=== PATIENT | male | born 1955 | race Caucasian/White ===

== ENCOUNTER → 2021-06-26 09:28 | Outpatient (CLI) | payer OTHER, SELFPAY ==
[2021-06-26 11:43] LABS: COVID19 -Nasal RAPID Negative (Negative)
== END ==
PROVIDERS: PCP Physician Assistant; Visit Provider Family Medicine Sleep Medicine
DX: Z20.822 Contact with and (suspected) exposure to COVID-19 (principal)
CPT/HCPCS: 87635; C9803

== ENCOUNTER 2021-06-29 08:42 | Day surgery (SDC) | payer OTHER, SELFPAY ==
--- NOTE | 2021-06-29 | PATH_ITS ---
[facility] Accession Number: [id number] . 01 Material submitted: . PART A: colon - DESCENDING COLON POLYP PART B: colon - CECAL POLYPS 2 PART C: colon - SIGMOID POLYP . 02 Diagnosis: A. Descending Colon Polyp, Biopsy: Tubular adenoma. . B. Cecal Polyps, Polypectomies: Sessile serrated adenoma x2. Tubular adenoma x2. . C. Sigmoid Colon Polyp, Biopsy: Tubular adenoma. MRV 06/30/2021 1359 Local . 02 Electronically signed: . Gregory Segura MD, PhD, Pathologist NPI- [id number] . 01 Gross description: . Part A: DESCENDING COLON POLYP: Received in formalin is 1 fragment(s) of munguia, soft tissue measuring 0.4 x 0.3 x 0.2 cm submitted entirely in 1 cassette(s) Part B: CECAL POLYPS 2: Received in formalin are 4 fragment(s) of munguia, soft tissue measuring 0.1 x 0.1 x 0.1 cm to 0.6 x 0.5 x 0.5 cm submitted entirely in 1 cassette(s) Part C: SIGMOID POLYP: Received in formalin is 1 fragment(s) of munguia, soft tissue measuring 0.7 x 0.6 x 0.5 cm submitted entirely in 1 cassette(s) /TERI 06/30/2021 0153 Local . 02 Pathologist provided ICD-10: D12.4, D12.0, D12.5 . 02 CPT . 749470, 740911, 737498 Specimen Comment: A courtesy copy of this report has been sent to [phone] Performed at: 01 [facility] [address] [place] [address] [address], [place], [place] [id number] MD Julio Gay MD Phone: [phone] Performed at: 02 [facility] [address] [place] [id number] MD Beatriz Chopra MD Phone: [phone]
[2021-06-29] MEDS: SODIUM CHLORIDE 0.9% 1,000 ML 100 ML IV (09:16)
[2021-06-29 09:17] VITALS: BP 155/88; PULSE 78; RESP 16; TEMP 36.3; O2SAT 97; BMI 33.3
--- NOTE | 2021-06-29 09:18 | PM.HP.1 ---
History of Present Illness History of Present Illness Date Patient Seen: 06/29/21 Time Patient Seen: 09:18 Chief complaint: DX COLONOSCOPY Narrative: Positive fit. Positive family history colon cancer in his half sister Meds Home Medications and Allergies Home Medications Medication Instructions Recorded Confirmed Type amlodipine 10 mg tablet 10 mg PO DAILY 06/29/21 06/29/21 History hydrochlorothiazide 25 mg tablet 25 mg PO DAILY 06/29/21 06/29/21 History losartan 100 mg tablet 10 mg PO DAILY 06/29/21 06/29/21 History Allergies Allergy/AdvReac Type Severity Reaction Status Date / Time lisinopril AdvReac Intermediate Cough Verified 06/29/21 09:16 Review of Systems Review of Systems ROS: Yes All systems reviewed with the patient and are negative except as otherwise documented Exam Const General: cooperative and comfortable Orientation: alert HENMT Head: normocephalic Ears: external ears normal Nose: external nose normal Face and sinus: normal facial exam Mouth: oral mucosae normal Eyes General: appearance normal, both eyes and all related structures Neck Neck: normal visual inspection Chest Chest: normal inspection of the chest Resp Effort & Inspection: normal respiratory effort Cardio Rate: regular rate GI Inspection: normal to inspection Skin General: no rashes or lesions noted and No jaundice Neuro General: patient alert and moves all extremities Cognition: normal cognition Speech: speech normal Extrem General: no pedal edema Psych Appearance: grossly normal Assessment & Plan Assessment & Plan narrative: 65-year-old male the family history of colon cancer and a positive fit. Colonoscopy is pursued today. Time Spent With Patient Critical Care time: I spent a total of [] minutes of critical care time on this patient's care today; this time is exclusive of procedural time.
--- NOTE | 2021-06-29 09:20 | PM.PREOP ---
Pre-operative Note COVID-19 COVID-19 status: Negative Result date/Date tested (Pos, Neg/Pending): 06/26/21 Criteria for continued procedure: Possibility delay results in more complex future surgery or treatment Interval Note History & Physical reviewed/Exam performed by Physician: Yes Changes to H&P: No ASA Class (for procedural sedation): II
--- NOTE | 2021-06-29 10:03 | SUR.OPER ---
CECUM AT 0955
--- NOTE | 2021-06-29 10:15 | PM.OP.COLON ---
Operative Date/Time/Diagnoses Date of procedure: 06/29/21 Time of procedure: 10:15 Pre-op diagnosis: Positive FIT and a family history of colon cancer Post-op diagnosis: same Procedure & Clinicians Study performed: Colonoscopy with hot and cold snare polypectomies Same procedure as scheduled: Yes Indications: Positive FIT and a family history of colon cancer Surgeon: Wilder Jacobs Procedure Notes SCOAP/Timeout: Done Procedure in detail: After the risks and benefits were explained, written and verbal informed consent was obtained. The patient was brought into the procedure room and placed into the left lateral decubitus position. Please see nurse secondary education professor notes for sedation details. Digital rectal examination was accomplished. The scope was introduced into the patient and advanced under direct visualization to the cecum as identified by the appendiceal orifice and ileocecal valve. The scope was slowly withdrawn to carefully examine the mucosa for any defects or lesions. Comprehensive imaging was accomplished throughout the rectum including the dentate line. The colon was decompressed, the scope was then removed from the patient who tolerated the procedure well. Bowel prep adequate Adult colonoscope Scope withdrawal time: 18 minutes Sedation minutes: 28 Complications: none Impression: There was some diverticulosis in the sigmoid colon. Patient had grade 1 to grade 2 internal nonbleeding nonthrombosed hemorrhoids. In the descending colon there was an approximately 6-7 mm sessile polyp removed with hot snare. In the cecum there were 4 small polyps ranging in size from 2 mm to 6 mm in greatest dimension. Two of the smallest polyps were removed with cold snare and the 2 larger with hot snare. In the sigmoid around 30 cm from the anal verge there was a sessile irregular shaped polyp with greatest dimension being perhaps 13-14 mm. This was successfully removed with hot snare. Endoscopic diagnosis 1. Multiple colon polyps 2. Grade 2 hemorrhoids 3. Diverticulosis Post-procedure Plan for aftercare: 1. Await histopathology 2. Repeat colonoscopy 3 years. Disposition: PACU
[2021-06-29 10:19] VITALS: BP 117/79; PULSE 78; RESP 14; TEMP 36.6; O2SAT 95
[2021-06-29 10:24] VITALS: BP 129/87; PULSE 72; RESP 14; O2SAT 96
[2021-06-29 10:29] VITALS: BP 137/91; PULSE 63; RESP 14; O2SAT 99
[2021-06-29 10:35] VITALS: BP 137/84; PULSE 65; RESP 14; O2SAT 98
== END 2021-06-29 11:17 | disposition home or self-care (01) ==
PROVIDERS: PCP Physician Assistant; Referring Provider Internal Medicine Gastroenterology; Visit Provider Internal Medicine Gastroenterology
PROC: 0DJD8ZZ Inspection of Lower Intestinal Tract, Via Natural or Artificial Opening Endoscopic (ICD-10-PCS; CPT 45378; principal; 2021-06-29 10:00)
DX: R19.5 Other fecal abnormalities (principal); Z80.0 Family history of malignant neoplasm of digestive organs; K57.30 Diverticulosis of large intestine without perforation or abscess without bleeding; K64.1 Second degree hemorrhoids; D12.4 Benign neoplasm of descending colon; D12.0 Benign neoplasm of cecum; D12.5 Benign neoplasm of sigmoid colon
CPT/HCPCS: 45385; J2704

== ENCOUNTER → 2024-07-27 10:05 | Outpatient (CLI) | payer MEDICARE, SELFPAY ==
--- NOTE | 2024-07-27 10:09 | DI.RAD.S_ITS ---
PROCEDURE: XR HIP W PEL IF DONE RT 2V INDICATIONS: Pain in right hip TECHNIQUE: AP pelvis with lateral view(s) of the right hip(s). COMPARISON: None. FINDINGS: Bones: No fractures or dislocations. Pelvic ring appears intact. No suspicious bony lesions. Degenerative narrowing is present within the hip joints bilaterally. Osteophytic overgrowth is present at the superior aspect of the acetabulum bilaterally. Mild degenerative changes are present within the lower lumbar spine. Soft tissues: The visualized bowel gas pattern is normal. No suspicious soft tissue calcifications. IMPRESSION: Degenerative changes without visualized fracture. Dictated by: Sosa Gayle M.D. on 07/27/2024 at 12:48 Approved by: Sosa Gayle M.D. on 07/27/2024 at 12:49
== END ==
PROVIDERS: PCP Student in an Organized Health Care Education/Training Program; Referring Provider Student in an Organized Health Care Education/Training Program; Visit Provider Student in an Organized Health Care Education/Training Program
DX: M47.816 Spondylosis without myelopathy or radiculopathy, lumbar region (principal); M25.551 Pain in right hip
CPT/HCPCS: 73502

== ENCOUNTER 2024-08-01 16:02 | Observation (INO) | payer MEDICARE, SELFPAY ==
[2024-08-01] VITALS (13 sets, daily range): BP systolic 128–150; BP diastolic 70–90; PULSE 68–78; RESP 11–27; TEMP 36.6–37.1; O2SAT 96–100; BMI 33.2
--- NOTE | 2024-08-01 16:26 | EKG_ITS ---
[place] [id number] [address] Test Date: 2024-08-01 Pat Name: Gustavo Shaver Department: Room: Gender: Male Relief Operator: FERNANDO : 1955 Requested By: Order Number: [id number] Reading MD: Mayito Dowell MD Measurements Intervals [place] Rate: 73 P: 16 NM: 188 QRS: 5 QRSD: 108 T: 37 QT: 424 QTc: 467 Interpretive Statements Sinus rhythm with premature atrial complexes Electronically Signed On 08-02-2024 7:41:46 PDT by Mayito Dowell MD
--- NOTE | 2024-08-01 16:26 | DI.CT.S_ITS ---
PROCEDURE: CT HEAD/BRAIN WO CON INDICATIONS: falls R leg intermittently weak TECHNIQUE: Noncontrast 4.5 mm thick angled axial sections acquired from the foramen magnum to the vertex, with coronal and sagittal reformats. For radiation dose reduction, the following was used: automated exposure control, adjustment of mA and/or kV according to patient size. COMPARISON: None. FINDINGS: Image quality: Diagnostic. CSF spaces: Basal cisterns are patent. No extra-axial fluid collections. The ventricles are symmetric in size and shape. Brain: No intracranial bleeds or mass effect. There is cerebral volume loss, with resultant ventricular and sulcal prominence. There are periventricular and deep white matter chronic small vessel ischemic changes. There is intracranial internal carotid artery atherosclerosis. Skull and face: Calvarium and visualized facial bones appear intact, without suspicious lesions. Sinuses: Visualized sinuses and mastoids are clear. IMPRESSION: No acute intracranial pathology. Dictated by: Henrique De Jesus M.D. on 08/01/2024 at 18:12 Approved by: Henrique De Jesus M.D. on 08/01/2024 at 18:13
--- NOTE | 2024-08-01 16:26 | DI.RAD.S_ITS ---
PROCEDURE: XR HIP W PEL IF DONE RT 2V INDICATIONS: falls R leg intermittently weak TECHNIQUE: AP pelvis with lateral view(s) of the right hip(s). COMPARISON: [facility], , XR HIP W PEL IF DONE RT 2V, 07/27/2024, 9:18. FINDINGS: Bones: No fractures or dislocations. Pelvic ring appears intact. No suspicious bony lesions. Arthritic changes are present within the hips bilaterally. Soft tissues: The visualized bowel gas pattern is normal. No suspicious soft tissue calcifications. IMPRESSION: No visualized acute fracture or dislocation. However, if clinical concern and/or pain persist, short interval imaging followup in 7-10 days is recommended, as occult injury cannot be definitively excluded. Dictated by: Sosa Gayle M.D. on 08/01/2024 at 17:07 Approved by: Sosa Gayle M.D. on 08/01/2024 at 17:07
[2024-08-01 16:50] LABS: Add Manual Diff / Slide Review NO; Basophils Absolute Auto 100 /uL (0-100); Eosinophils Absolute Auto 300 /uL (0-450); Eosinophils Percent Auto 3.1 % (2-4); Hematocrit 42.1 % (41-53); Hemoglobin 14.9 g/dL (13.5-17.5); Lymphocytes Absolute Auto 2000 /uL (1100-4500); Lymphocytes Percent Auto 22.1 % (25-40); Mean Corpuscular HGB Conc 35.5 % (30-36); Mean Corpuscular Hemoglobin 30.8 PG (26-34); Mean Corpuscular Volume 86.9 fL (80-100); Monocytes Absolute Auto 900 /uL (0-900); Monocytes Percent Auto 10.1 % (3-14); Neutrophils Absolute Auto 5700 /uL (1500-7000); Neutrophils Percent Auto 63.7 % (50-75); Platelet Count 199 X10^3/uL (150-400); Red Blood Cell Count 4.85 X10^6/uL (4.5-5.9); Red Cell Distribution Width 14.1 % (11.6-14.8)
--- NOTE | 2024-08-01 16:50 | DI.RAD.S_ITS ---
PROCEDURE: XR KNEE RT 3V INDICATIONS: patient had a fall yesterday on crosswalk TECHNIQUE: 3 views of the knee were acquired. COMPARISON: None. FINDINGS: Bones: No fractures or dislocations. No suspicious bony lesions. Soft tissues: No joint effusion. No suspicious soft tissue calcifications. IMPRESSION: No visualized acute fracture or dislocation. However, if clinical concern and/or pain persist, short interval imaging followup in 7-10 days is recommended, as occult injury cannot be definitively excluded. Dictated by: Sosa Gayle M.D. on 08/01/2024 at 17:07 Approved by: Sosa Gayle M.D. on 08/01/2024 at 17:08
[2024-08-01 16:58] LABS: Alanine Aminotransferase 65 IU/L (<50); Albumin Globulin Ratio 1.5 (1.0-2.8); Alkaline Phosphatase 54 U/L (38-126); Aspartate Aminotransferase 36 IU/L (17-59); BUN Creatinine Ratio 21.7 (6-22); Blood Urea Nitrogen 28 mg/dL (9-20); Calcium 8.7 mg/dL (8.4-10.2); Carbon Dioxide 31 mmol/L (22-32); Chloride 98 mmol/L (98-107); Estimated Glomerular Filt Rate > 60 mL/min (>60); Globulin 2.6 g/dL (1.7-4.1); Glucose 156 mg/dL (70-99); HEMOLYSIS < 15 (0-50); Sodium 137 mmol/L (137-145); Total Protein 6.6 g/dL (6.3-8.2)
[2024-08-01 17:07] LABS: Potassium 2.7 mmol/L (3.4-5.1)
[2024-08-01] MEDS: POTASSIUM CHLORIDE 20 MEQ TAB 40 MEQ PO (18:01)
[2024-08-01] MEDS: BACITRACIN OINT 0.9 GM PCKT 2 APPLIC TOP (18:38)
--- NOTE | 2024-08-01 18:55 | ED_ITS ---
HPI - Neuro Symptoms/Deficit General Chief Complaint: Neuro Symptoms/Deficit Stated Complaint: sent by PCP, r/o TIA's Time Seen by Provider: 08/01/24 16:26 Source: patient Mode of arrival: Ambulatory History of Present Illness HPI Narrative: 68-year-old male with past medical history of hypertension presenting from primary care for generalized weakness, states that earlier this week he had a fall states that he felt like he could not move his leg at that time, states that he has been feeling overall weak, states that he did not hit his head at that time, he states that he called his primary care doctor and was instructed come into the ED to rule out any neurological deficits. At time of evaluation patient with NIH of 0 but does appear weak to his lower extremities, denies any headache visual disturbances chest pain shortness of breath fever chills nausea vomiting abdominal pain or any other GI/ symptoms. On Anticoagulants: No Related Data Home Medications Medication Instructions Recorded Confirmed amlodipine 10 mg tablet 10 mg PO DAILY 06/29/21 06/29/21 hydrochlorothiazide 25 mg tablet 25 mg PO DAILY 06/29/21 06/29/21 losartan 100 mg tablet 10 mg PO DAILY 06/29/21 06/29/21 Allergies Allergy/AdvReac Type Severity Reaction Status Date / Time lisinopril AdvReac Intermediate Cough Verified 06/29/21 09:16 Review of Systems Review of Systems Narrative: General: Denies fever, chills, weight loss HEENT: Denies headache, eye drainage, eye irritation, head trauma, sore throat, voice change Cardiovascular: Denies any chest pain, palpitations, tachycardia Respiratory: Denies any shortness of breath, cough, wheeze, stridor GI/: Denies any abdominal pain, nausea, vomiting, diarrhea, bright red blood per rectum, melanotic stools, urinary frequency, urinary retention, dysuria, hematuria MSK: Denies any joint pain, muscle pains, swelling Skin: Denies any rashes, lesions, discoloration Neuro: Right-sided leg weakness, Denies any headache, lightheadedness, dizziness, fainting, weakness Psych: Denies SI/HI Hematologic/Lymphatic On Anticoagulants: No Patient History Social History household members: spouse Smoking Status: Never smoker alcohol intake: current Smoking Status: Never smoker alcohol intake frequency: holidays/special occasions only Exam Narrative Exam Narrative: General: Cooperative, well-developed, not in acute distress HEENT: Normocephalic, atraumatic, PERRLA, normal sclera, eyelids normal Neck: Active full range of motion, atraumatic Chest: Normal to inspection, negative crepitus, no overlying erythema ecchymosis Respiratory: Normal respiratory effort, not in acute respiratory distress, clear to auscultation bilaterally negative cough, wheeze, tachypnea, rhonchi, rales Cardiology: Regular rate rhythm negative gallop, murmur, rubs GI/: No tenderness to palpation, soft, non rigid, normal to inspection, exam deferred MSK: Full active range of motion in all 4 extremities, atraumatic, no tenderness to palpation of any bony prominences Skin: No rashes or lesions noted Neuro: NIH of 0, Alert awake oriented x3, moves all 4 extremities spontaneously, cranial nerves intact, able to answer all questions appropriately follows commands appropriately Psych: Cooperative, negative suicidal or homicidal ideations Initial Vital Signs Initial Vital Signs: Vital Signs Pulse Rate 78 08/01/24 16:08 Pulse Oximetry 96 08/01/24 16:08 Course Orders Ordered: ED Orders 08/01/24 16:26 CT head/brain wo con Stat XR hip w pel RT 2V Stat EKG-12 Lead Stat 08/01/24 16:40 CBC Auto Diff [Complete Blood Count AUTO DIFF] Stat CMP [Comprehensive Metabolic Panel] Stat 08/01/24 16:50 XR knee RT 3V Stat Magnesium Sulfate (Magnesium Sulfate) 2 gm in 50 mls @ 25 mls/hr IV NOW ONE Stop: 08/01/24 20:55 Last Admin: 08/01/24 19:13 Dose: 25 mls/hr Documented By: RB Co-signed By: MIKE POTASSIUM CHLORIDE IN WATER (Potassium Cl 10 Meq/100 Ml Gloria) 10 meq in 100 mls @ 100 mls/hr IV Q1H ANURADHA Stop: 08/01/24 22:59 Last Admin: 08/01/24 19:51 Dose: 100 mls/hr Documented By: MIKE Sodium Chloride (Normal Saline 0.9%) 1,000 mls @ 150 mls/hr IV CONT ANURADHA Last Admin: 08/01/24 19:50 Dose: 150 mls/hr Documented By: MIKE Discontinued Medications Bacitracin (Bacitracin Oint 0.9 Gm Pckt) 2 applic TOP NOW ONE Stop: 08/01/24 18:31 Last Admin: 08/01/24 18:38 Dose: 2 applic Documented By: ROSS Sodium Chloride (Normal Saline 0.9%) 250 mls @ 150 mls/hr IV CONT ANURADHA Mupirocin (Mupirocin 22 Gm Oint) 2 applic TOP BID ANURADHA Potassium Chloride (Potassium Chloride 20 Meq Tab) 40 meq PO NOW ONE Stop: 08/01/24 17:52 Last Admin: 08/01/24 18:01 Dose: 40 meq Documented By: ROSS Vital Signs Vital signs: Vital Signs - 8 hr 08/01/24 16:08 08/01/24 16:09 08/01/24 16:09 Temperature Pulse Rate 78 76 Respiratory Rate 11 L Blood Pressure 150/81 H Pulse Oximetry 96 99 Oxygen Delivery Method 08/01/24 16:11 08/01/24 16:30 08/01/24 16:30 Temperature 98.7 F Pulse Rate 75 69 Respiratory Rate 14 16 Blood Pressure 150/81 H 134/74 Pulse Oximetry 99 98 Oxygen Delivery Method Room Air 08/01/24 17:02 08/01/24 17:30 08/01/24 18:00 Temperature Pulse Rate 73 78 71 Respiratory Rate 24 17 Blood Pressure Pulse Oximetry 99 99 98 Oxygen Delivery Method 08/01/24 18:30 08/01/24 18:30 08/01/24 19:00 Temperature Pulse Rate 68 Respiratory Rate 19 Blood Pressure 128/75 130/70 Pulse Oximetry 100 Oxygen Delivery Method 08/01/24 19:00 08/01/24 19:19 08/01/24 19:19 Temperature Pulse Rate 74 77 Respiratory Rate 27 H 19 Blood Pressure 143/82 H Pulse Oximetry 99 98 Oxygen Delivery Method MDM - Neuro Symptoms/Deficit Differential Diagnosis Differential diagnosis: Likely other (CVA, electrolyte abnormality,) Lab Data 08/01/24 16:40 08/01/24 16:40 Labs: Lab Results 08/01/24 Range/Units 16:40 WBC 9.0 (4.5-11.0) X10^3/uL RBC 4.85 (4.5-5.9) X10^6/uL Hgb 14.9 (13.5-17.5) g/dL Hct 42.1 (41-53) % MCV 86.9 (80-100) fL MCH 30.8 (26-34) PG MCHC 35.5 (30-36) % RDW 14.1 (11.6-14.8) % Plt Count 199 (150-400) X10^3/uL Neut % (Auto) 63.7 (50-75) % Lymph % (Auto) 22.1 L (25-40) % Weld % (Auto) 10.1 (3-14) % Eos % (Auto) 3.1 (2-4) % Baso % (Auto) 1.0 (0-2) % Neut # (Auto) 5700 (2108-3478) /uL Lymph # (Auto) 2000 (6856-1499) /uL Weld # (Auto) 900 (0-900) /uL Eos # (Auto) 300 (0-450) /uL Baso # (Auto) 100 (0-100) /uL Sodium 137 (137-145) mmol/L Potassium 2.7 L* (3.4-5.1) mmol/L Chloride 98 (98-107) mmol/L Carbon Dioxide 31 (22-32) mmol/L BUN 28 H (9-20) mg/dL Creatinine 1.29 H (0.66-1.25) mg/dL Estimated GFR > 60 (>60) mL/min BUN/Creatinine Ratio 21.7 (6-22) Glucose 156 H (70-99) mg/dL Calcium 8.7 (8.4-10.2) mg/dL Total Bilirubin 2.0 H (0.2-1.3) mg/dL AST 36 (17-59) IU/L ALT 65 H (<50) IU/L Alkaline Phosphatase 54 (38-126) U/L Total Protein 6.6 (6.3-8.2) g/dL Albumin 4.0 (3.5-5.0) g/dL Globulin 2.6 (1.7-4.1) g/dL Albumin/Globulin Ratio 1.5 (1.0-2.8) Imaging Data CT scan - head: Radiologist's Impression: [address] [address] [address] Scan Report Signed Patient: Gustavo Shaver MR#: [id number] : 1955 Acct:[id number] Age/Sex: 68 / M Date of Service: 08/01/24 Loc: ED Accession Number: [id number] Procedure: CT head/brain wo con Ordering Provider: Tsering Porras D.O. PROCEDURE: CT HEAD/BRAIN WO CON INDICATIONS: falls R leg intermittently weak TECHNIQUE: Noncontrast 4.5 mm thick angled axial sections acquired from the foramen magnum to the vertex, with coronal and sagittal reformats. For radiation dose reduction, the following was used: automated exposure control, adjustment of mA and/or kV according to patient size. COMPARISON: None. FINDINGS: Image quality: Diagnostic. CSF spaces: Basal cisterns are patent. No extra-axial fluid collections. The ventricles are symmetric in size and shape. Brain: No intracranial bleeds or mass effect. There is cerebral volume loss, with resultant ventricular and sulcal prominence. There are periventricular and deep white matter chronic small vessel ischemic changes. There is intracranial internal carotid artery atherosclerosis. Skull and face: Calvarium and visualized facial bones appear intact, without suspicious lesions. Sinuses: Visualized sinuses and mastoids are clear. IMPRESSION: No acute intracranial pathology. Extremity x-ray #1: Radiologist's Impression: [place] [address] XRay Report Signed Patient: Gustavo Shaver MR#: [id number] : 1955 Acct:[id number] Age/Sex: 68 / M Date of Service: 08/01/24 Loc: ED Accession Number: [id number] Procedure: XR hip w pel RT 2V Ordering Provider: Tsering Porras D.O. PROCEDURE: XR HIP W PEL IF DONE RT 2V INDICATIONS: falls R leg intermittently weak TECHNIQUE: AP pelvis with lateral view(s) of the right hip(s). COMPARISON: [facility], , XR HIP W PEL IF DONE RT 2V, 07/27/2024, 9:18. FINDINGS: Bones: No fractures or dislocations. Pelvic ring appears intact. No suspicious bony lesions. Arthritic changes are present within the hips bilaterally. Soft tissues: The visualized bowel gas pattern is normal. No suspicious soft tissue calcifications. IMPRESSION: No visualized acute fracture or dislocation. However, if clinical concern and/or pain persist, short interval imaging followup in 7-10 days is recommended, as occult injury cannot be definitively excluded. Extremity x-ray #2: Radiologist's Impression: [address] [address] XRay Report Signed Patient: Gustavo Shaver MR#: [id number] : 1955 Acct:[id number] Age/Sex: 68 / M Date of Service: 08/01/24 Loc: ED Accession Number: [id number] Procedure: XR knee RT 3V Ordering Provider: Tsering Porras D.O. PROCEDURE: XR KNEE RT 3V INDICATIONS: patient had a fall yesterday on crosswalk TECHNIQUE: 3 views of the knee were acquired. COMPARISON: None. FINDINGS: Bones: No fractures or dislocations. No suspicious bony lesions. Soft tissues: No joint effusion. No suspicious soft tissue calcifications. IMPRESSION: No visualized acute fracture or dislocation. However, if clinical concern and/or pain persist, short interval imaging followup in 7-10 days is recommended, as occult injury cannot be definitively excluded. ECG Data Interpretation: EKG interpreted by ED physician sinus 73 beats per minute QTC [address] changes no visible U-waves no STEMI MDM Narrative Medical decision making narrative: 68-year-old male with a past medical history of hypertension presenting for right-sided leg weakness states that about a week ago he was bending over in his garden tried to get up and was not able to get the strength to get up, he states that he started feeling fine but yesterday was at a [employer] game and states that his right leg just ?gave out he states that he called his primary care doctor and was told to come into the ED to rule out stroke, at time evaluation NIH of 0, he states that he has been suffering from right hip pain for several weeks, he denies any other symptoms at this time, lab work was consistent with a hypokalemia of 2.7, EKG without any arrhythmias, given severe electrolyte abnormality most likely secondary to hydrochlorothiazide use patient will require admission for electrolyte replacement. Patient was given p.o. and IV potassium as well as magnesium. The patient's management plan was discussed Dr. Prather, who agrees to admit the patient to their service and assumes care of this patient at this time. Full admission orders will be placed by the primary team. Critical Care Time Critical Care Time Critical Care Time: Yes Total Critical Care Time: 30 Attestation: Authorized and Performed by: Storm Rivas DO Total critical care time: Approximately [30] minutes Due to a high probability of clinically significant, life threatening deterioration, the patient required my highest level of preparedness to intervene emergently and I personally spent this critical care time directly and personally managing the patient. This critical care time included obtaining a history; examining the patient; pulse oximetry; ordering and review of studies; arranging urgent treatment with development of a management plan; evaluation of patient's response to treatment; frequent reassessment; and, discussions with other providers. This critical care time was performed to assess and manage the high probability of imminent, life-threatening deterioration that could result in multi-organ failure. It was exclusive of separately billable procedures and treating other patients and teaching time. Please see MDM section and the rest of the note for further information on patient assessment and treatment. Discharge Plan Departure Patient Disposition: Admitted as Observation Clinical Impression: Acute hypokalemia
--- NOTE | 2024-08-01 18:56 | PC.NURSE ---
This RN cut off wound bandage from patient right knee from last nights fall. I washed the patient wound area with normal saline patting with gauze. This RN measured and placed assessments of all three wounds in and around the knee. This RN covered the wounds with Bactrian and covered with adherent foam dressing.
[2024-08-01] MEDS: MAGNESIUM SULFATE 2 GM/50 ML PIGGYBACK IV (19:13)
[2024-08-01] MEDS: SODIUM CHLORIDE 0.9% 1,000 ML 150 ML IV (19:50)
[2024-08-01] MEDS: POTASSIUM CHLORIDE IN WATER 10 MEQ/100 ML PIGGYBACK 100 MEQ IV ×4 (19:51→23:06)
[2024-08-01] MEDS: ACETAMINOPHEN 325 MG TABLET 650 MG PO (22:38)
[2024-08-01] MEDS: SODIUM CHLORIDE 0.9% 1,000 ML 75 ML IV (22:39)
[2024-08-02] VITALS: BP 138/89; PULSE 71; RESP 18; TEMP 36.7; O2SAT 98
[2024-08-02] MEDS: OXYCODONE/ACETAMINOPHEN 5/325 TABLET 2 TAB PO ×2 (00:26→06:07)
--- NOTE | 2024-08-02 00:26 | PM.HP.1 ---
History of Present Illness History of Present Illness Chief complaint: sent by PCP, r/o TIA's Narrative: 68-year-old male with past medical history of hypertension presents with generalized weakness. Per the patient's report, or about a week ago, the patient had a fall and fell that he could not move at that time due to generalized weakness. The patient denies any head injury and did not come in immediately for evaluation. The patient however called his PCP today and informed the patient's physician about this incident. The patient was instructed to come into our ER for further evaluation. Otherwise the patient denies any recent fever, chills, nausea, vomiting, diarrhea, chest pain, focal weakness, slurred speech, facial drooping syncope. In the emergency room, the patient was hemodynamically stable. X-ray of left knee and left hip shows no acute finding. CT of the brain also shows no acute finding. The patient was nonfocal and NIH of 0 per our ER physician. Lab however shows potassium 2.7 but no other signs of infection or sepsis. The patient was given IV fluid and replacement potassium. Our ER physician requested emergent evaluation for replacement potassium with PT OT and observed overnight. PFSH Social History household members: spouse Smoking Status: Never smoker alcohol intake: current Meds Home Medications and Allergies Home Medications Medication Instructions Recorded Confirmed Type amlodipine 10 mg tablet 10 mg PO DAILY 06/29/21 08/01/24 History hydrochlorothiazide 25 mg tablet 25 mg PO DAILY 06/29/21 08/01/24 History losartan 100 mg tablet 10 mg PO DAILY 06/29/21 08/01/24 History oxycodone-acetaminophen 5 mg-325 1 tab PO Q6H PRN Pain (Scale Score 08/01/24 08/01/24 History mg tablet 4-6) Allergies Allergy/AdvReac Type Severity Reaction Status Date / Time lisinopril AdvReac Intermediate Cough Verified 06/29/21 09:16 Review of Systems Review of Systems ROS: Yes All systems reviewed with the patient and are negative except as otherwise documented Exam Vital Signs (past 8 hours): - 08/01/24 16:30 08/01/24 16:30 08/01/24 17:02 Temperature Pulse Rate 69 73 Respiratory Rate 16 Blood Pressure 134/74 Pulse Oximetry 98 99 Oxygen Flow Rate 08/01/24 17:30 08/01/24 18:00 08/01/24 18:30 Temperature Pulse Rate 78 71 Respiratory Rate 24 17 Blood Pressure 128/75 Pulse Oximetry 99 98 Oxygen Flow Rate 08/01/24 18:30 08/01/24 19:00 08/01/24 19:00 Temperature Pulse Rate 68 74 Respiratory Rate 19 27 H Blood Pressure 130/70 Pulse Oximetry 100 99 Oxygen Flow Rate 08/01/24 19:19 08/01/24 19:19 08/01/24 19:30 Temperature Pulse Rate 77 Respiratory Rate 19 Blood Pressure 143/82 H 140/75 Pulse Oximetry 98 Oxygen Flow Rate 08/01/24 19:30 08/01/24 20:00 08/01/24 20:00 Temperature Pulse Rate 77 72 Respiratory Rate 20 15 Blood Pressure 129/78 Pulse Oximetry 98 97 Oxygen Flow Rate 08/01/24 20:45 08/02/24 00:00 Temperature 97.8 F 98.1 F Pulse Rate 71 71 Respiratory Rate 18 18 Blood Pressure 150/90 H 138/89 Pulse Oximetry 100 98 Oxygen Flow Rate 0 0 Oxygen Delivery Method Room Air Oxygen Flow Rate 0 Narrative Exam Narrative: Physical Exam: GENERAL: The patient is not in any acute distressed. Awake and alert. HEENT: Nonicteric sclerae, PERRLA, EOMI. Oropharynx clear. Moist mucous membranes. Conjunctivae appear well perfused. HEART: Regular rate and rhythm without murmurs. No lower extremities edema. LUNGS: Clear to auscultation bilaterally. No wheezing, crackles or rhonchi ABDOMEN: Soft, positive bowel sounds, nontender. SKIN: No rash, no excessive bruising, petechiae, or purpura. NEUROLOGIC: AxO x 3. Cranial nerves II-XII intact without motor/sensory deficit. Objective Labs 08/01/24 16:40 08/01/24 16:40 Labs: Laboratory Results - last 24 hr 08/01/24 16:40 WBC 9.0 RBC 4.85 Hgb 14.9 Hct 42.1 MCV 86.9 MCH 30.8 MCHC 35.5 RDW 14.1 Plt Count 199 Neut % (Auto) 63.7 Lymph % (Auto) 22.1 L [place] % (Auto) 10.1 Eos % (Auto) 3.1 Baso % (Auto) 1.0 Neut # (Auto) 5700 Lymph # (Auto) 2000 [place] # (Auto) 900 Eos # (Auto) 300 Baso # (Auto) 100 Sodium 137 Potassium 2.7 L* Chloride 98 Carbon Dioxide 31 BUN 28 H Creatinine 1.29 H Estimated GFR > 60 BUN/Creatinine Ratio 21.7 Glucose 156 H Calcium 8.7 Total Bilirubin 2.0 H AST 36 ALT 65 H Alkaline Phosphatase 54 Total Protein 6.6 Albumin 4.0 Globulin 2.6 Albumin/Globulin Ratio 1.5 Assessment & Plan Assessment & Plan narrative: Recent fall with complaint of generalized weakness. Admit patient to medical telemetry under observation. Again patient is nonfocal exam CT head is negative. Patient does have generalized weakness that could be related to hypokalemia. Correct underlying electrolites imbalance and order for PT OT in morning. IV fluid hydration. Note left knee and left hip x-rays are negative for any acute finding. Pain control. Hypokalemia Patient denies any history of alcohol abuse. Potassium 2.7. Replace and monitor. Dehydration. IV fluid. Hypertension monitor blood pressure and resume home medication accordingly. DVT prophylaxis SCDs due to observational status CODE STATUS full code. Disposition likely home in 1 to 2 days - As the provider of this telehealth evaluation, requested by the patient's evaluating physician, I attest that I introduced myself to the patient, provided my credentials and determined that telemedicine via a real-time, 2 way interactive audio and video platform is an appropriate and effective means of providing this service. - I reviewed the patient's chart and had a discussion with the member of the patient's treatment team. - The patient and I mutually agreed with continuation of this evaluation via telemedicine. The patient consented for the telemedicine evaluation. - This virtual encounter was taken place from [place] by Dr. Rock Prather. The patient was evaluated at [facility]. The encounter was approximately 35 minutes. The nurse was present during the entire time of the encounter and was able to move the stethoscope in appropriate directions. Time-Based Coding :: [TOTAL MINUTES] spent with patient and on the chart (including review of chart, obtaining history, exam, reviewing outside data, placing orders, documenting exam and treatment plan, and counseling patient) on [DATE].
--- NOTE | 2024-08-02 00:51 | PC.WOUNDPHOT ---
Open area/abrasion/bruise from a fall to the R knee.
--- NOTE | 2024-08-02 02:06 | PC.NURSE ---
Addendum entered by Marleni Howard R.N. 08/02/24 03:17: the pts k+ is now 3.0 Rn notified provider and is waiting for new orders Original Note: pt recieved 4th bag of k+ around midnight and shortly after the provider ordered x6 more bags, md ophthalmologist asked to wait and have labs drwn prior to proceding, lab was called and will draw soon
[2024-08-02 03:04] LABS: BUN Creatinine Ratio 21.4 (6-22); Blood Urea Nitrogen 22 mg/dL (9-20); Calcium 8.4 mg/dL (8.4-10.2); Carbon Dioxide 25 mmol/L (22-32); Chloride 102 mmol/L (98-107); Estimated Glomerular Filt Rate > 60 mL/min (>60); Glucose 148 mg/dL (70-99); HEMOLYSIS < 15 (0-50); Magnesium 2.6 mg/dL (1.6-2.3); Sodium 134 mmol/L (137-145)
[2024-08-02] MEDS: POTASSIUM CHLORIDE IN WATER 10 MEQ/100 ML PIGGYBACK 100 MEQ IV ×5 (03:39→09:23)
[2024-08-02 04:00] VITALS: BP 127/82; PULSE 61; RESP 18; TEMP 36.4; O2SAT 99
[2024-08-02] MEDS: SODIUM CHLORIDE 0.9% 1,000 ML 75 ML IV (07:56)
[2024-08-02] MEDS: AMLODIPINE 5 MG TABLET 10 MG PO (09:20)
[2024-08-02] MEDS: LOSARTAN 50 MG TABLET 10 MG PO (09:20)
[2024-08-02] MEDS: OXYCODONE IR 10 MG TABLET PO (09:23)
[2024-08-02] MEDS: LACTULOSE 20 GM/30 ML SOLUTION PO ×2 (09:23→14:04)
[2024-08-02] MEDS: LIDOCAINE 5% PATCH 1 EACH TOP (09:30)
[2024-08-02 09:49] VITALS: BP 131/81; PULSE 75; RESP 16; TEMP 36.5; O2SAT 98
[2024-08-02 11:17] LABS: Add Manual Diff / Slide Review NO; Basophils Absolute Auto 100 /uL (0-100); Basophils Percent Auto 1.1 % (0-2); Eosinophils Absolute Auto 300 /uL (0-450); Eosinophils Percent Auto 3.4 % (2-4); Hemoglobin 14.3 g/dL (13.5-17.5); Lymphocytes Absolute Auto 2300 /uL (1100-4500); Lymphocytes Percent Auto 30.2 % (25-40); Mean Corpuscular HGB Conc 35.8 % (30-36); Mean Corpuscular Volume 86.6 fL (80-100); Monocytes Absolute Auto 700 /uL (0-900); Monocytes Percent Auto 8.7 % (3-14); Neutrophils Absolute Auto 4400 /uL (1500-7000); Neutrophils Percent Auto 56.6 % (50-75); Platelet Count 209 X10^3/uL (150-400); Red Blood Cell Count 4.61 X10^6/uL (4.5-5.9); Red Cell Distribution Width 14.4 % (11.6-14.8); White Blood Cell Count 7.7 X10^3/uL (4.5-11.0)
[2024-08-02 11:30] LABS: BUN Creatinine Ratio 22.8 (6-22); Blood Urea Nitrogen 23 mg/dL (9-20); Calcium 8.3 mg/dL (8.4-10.2); Carbon Dioxide 23 mmol/L (22-32); Chloride 102 mmol/L (98-107); Estimated Glomerular Filt Rate > 60 mL/min (>60); Glucose 183 mg/dL (70-99); HEMOLYSIS 24 (0-50); Potassium 3.3 mmol/L (3.4-5.1); Sodium 134 mmol/L (137-145)
[2024-08-02] MEDS: ACETAMINOPHEN 325 MG TABLET 650 MG PO ×3 (11:58→23:09)
[2024-08-02] MEDS: POTASSIUM CHLORIDE 20 MEQ TAB 40 MEQ PO ×2 (12:43→17:24)
[2024-08-02 13:00] VITALS: BP 135/77; PULSE 78; RESP 15; TEMP 37.1; O2SAT 98
--- NOTE | 2024-08-02 13:32 | DI.MRI.S_ITS ---
PROCEDURE: MR LUMBAR SPINE WO CON INDICATIONS: radiculopathy TECHNIQUE: Noncontrast sagittal T1 spin echo and T2 fast echo, sagittal STIR, and T2 fast spin echo through the lumbar spine. In cases with scoliosis, additional coronal T2 fast spin echo may be performed. COMPARISON: [facility], CT, CT HEAD/BRAIN WO CON, 08/01/2024, 17:03. FINDINGS: Image quality: Excellent. Alignment and Curvature: There minimal levoconvex lumbar scoliotic curvature. There is minimal retrolisthesis seen at L5-S1. Bone Marrow: Marrow is of normal overall signal. No acute vertebral body compression fractures. Spinal Cord: Conus medullaris terminates at the L1 level. Visualized cord demonstrates normal signal and size. Paraspinous Soft Tissues: No paravertebral masses. T12-L1: Normal appearance. L1-L2: No significant abnormality is seen. L2-L3: Mild loss of disc height is seen. Loss of disc signal is seen. Moderate generalized disc bulge is seen. There is a superimposed central disc protrusion. Mild to moderate facet hypertrophy is seen. There is at least moderate bilateral neural foraminal narrowing seen. There is a degree of compression seen upon the exiting nerve roots. Moderate central canal narrowing is seen. L3-L4: The disc height is well-preserved. Loss of disc signal is seen at this level. Moderate generalized disc bulge is seen. There is a superimposed central disc protrusion. At least moderate facet hypertrophy is seen. There is moderate right-sided and at least moderate left-sided neural foraminal narrowing. There is a degree of compression seen upon the exiting left L3 nerve root. Moderate to severe central canal narrowing is seen, as on series 7, image 11. L4-L5: The disc height is well-preserved. Loss of disc signal is seen at this level. Moderate generalized disc bulge is seen. There is a central/right disc extrusion, with superior migration of the disc material. There is an associated focal annular fissure seen posteriorly. Moderate facet joint hypertrophy is seen. At least moderate left-sided and moderate to severe right-sided neural foraminal narrowing. There is a degree of compression seen upon the exiting nerve roots. Moderate to severe central canal narrowing is seen at this level, as on series 7, image 14. L5-S1: Mild loss of disc height is seen. Loss of disc signal is seen. Moderate disc bulge is seen, which is eccentric to the left. There is moderate right-sided and at least moderate left-sided neural foraminal narrowing. Mild central canal narrowing is seen. IMPRESSION: At the L4-L5 level, there is a central/right disc extrusion seen. Multiple levels of significant degenerative change can be seen elsewhere. Dictated by: Byron Tobar M.D. on 08/03/2024 at 14:48 Approved by: Byron Tobar M.D. on 08/03/2024 at 14:52
--- NOTE | 2024-08-02 13:36 | PM.PN.1 ---
Subjective Subjective Date Patient Seen: 08/02/24 Interval history: Chief complaint: Right-sided hip pain and right leg weakness History of present illness: 68-year-old male 2 weeks ago was weeding in his guarding bending over could not stand up due to weakness in his right leg grab the post individually pull himself up was able to walk it but continued to have pain in his right hip when disease PCP ordered a plain x-ray film which demonstrated arthritic changes but nothing further Patient was walking in a crosswalk day ago and fell and could not stand up because of weakness in his right leg again. Patient has been sleeping in a chair due to right hip pain for the past 2 weeks. Emergency department patient was also found to be dehydrated and hypokalemic patient was admitted patient had been taking hydrochlorothiazide amlodipine and losartan Hospital course: Patient is feeling not as weak today his hydrochlorothiazide has been held his potassium has improved to 3.3. He still has significant pain with sitting on his right hip. Demonstrated a positive leg raise today and increased pain in his hip with lumbar extension MRI was ordered and patient is started on IV Solu-Medrol Review of systems: No lightheaded or dizziness no fever or chills No palpitations or shortness a breath No cough No nausea vomiting diarrhea No urinary symptoms Physical exam: Elderly male moderately obese alert cogent no acute distress HEENT unremarkable No labored respirations Patient has an antalgic gait Positive leg raise with a reproduction of the pain at the hip Reproduction of pain and worsening of pain with extension of the lumbar spine Assessment and plan: Hip pain and right leg weakness focal suggestive of either radiculopathy or sciatica -MRI of the lumbar spine -Solu-Medrol 60 IV Q 8 hours -PT evaluation Dehydration and hypokalemia likely iatrogenic with hydrochlorothiazide we will discontinue this and continue repletion Patient at low risk for DVT no prophylaxis indicated Full code blue Exam Vital Signs (past 8 hours): - 08/02/24 09:49 Temperature 97.7 F Pulse Rate 75 Respiratory Rate 16 Blood Pressure 131/81 Pulse Oximetry 98 Oxygen Flow Rate 0 Oxygen Delivery Method Room Air Oxygen Flow Rate 0 Objective Labs 08/02/24 11:03 08/02/24 11:03 Labs: Laboratory Results - last 24 hr 08/01/24 08/02/24 08/02/24 16:40 02:40 11:03 WBC 9.0 7.7 RBC 4.85 4.61 Hgb 14.9 14.3 Hct 42.1 40.0 L MCV 86.9 86.6 MCH 30.8 31.0 MCHC 35.5 35.8 RDW 14.1 14.4 Plt Count 199 209 Neut % (Auto) 63.7 56.6 Lymph % (Auto) 22.1 L 30.2 [place] % (Auto) 10.1 8.7 Eos % (Auto) 3.1 3.4 Baso % (Auto) 1.0 1.1 Neut # (Auto) 5700 4400 Lymph # (Auto) 2000 2300 [place] # (Auto) 900 700 Eos # (Auto) 300 300 Baso # (Auto) 100 100 Sodium 137 134 L 134 L Potassium 2.7 L* 3.0 L 3.3 L Chloride 98 102 102 Carbon Dioxide 31 25 23 BUN 28 H 22 H 23 H Creatinine 1.29 H 1.03 1.01 Estimated GFR > 60 > 60 > 60 BUN/Creatinine Ratio 21.7 21.4 22.8 H Glucose 156 H 148 H 183 H Calcium 8.7 8.4 8.3 L Magnesium 2.6 H Total Bilirubin 2.0 H AST 36 ALT 65 H Alkaline Phosphatase 54 Total Protein 6.6 Albumin 4.0 Globulin 2.6 Albumin/Globulin Ratio 1.5 PFSH Social History household members: spouse Smoking Status: Never smoker alcohol intake: current Assessment & Plan Time-Based Coding :: 35 minutes spent with patient and on the chart (including review of chart, obtaining history, exam, reviewing outside data, placing orders, documenting exam and treatment plan, and counseling patient)
[2024-08-02] MEDS: methylPREDNISolone 125 MG/2 ML VIAL 60 MG IV ×2 (13:54→23:00)
--- NOTE | 2024-08-02 14:30 | CM.DANOTE ---
Initial DCP Assessment Visit Note Reviewed EMR and team rounds for pt's status and updates. Met with pt at bedside to introduce self and role, pt was found to be alert/oriented, and resting quietly. Pt lives independently at baseline with his spouse in their own home here in [place]. His spouse will also transport him home once he's medically cleared for d/c, likely Tuesday, 08/02. He declines any CM d/c assistance or resource needs at this time. Payor: FUNMI TOVAR Adv PCP: Joe Palomo Pt is a 68 year-old M who was sent by his PCP yesterday evening for concerns of generalized weakness, and a recent fall due to R-leg weakness. In the ED, labs showed that he was hypokalemic. Plan was made to admit to [facility] for IV potassium and magnesium replacement. DCP will continue to monitor and assist with any further evolving needs prior to home d/c. Discharge Planning/Care Management CM Discharge Assessment Start: 08/01/24 20:32 Freq: Status: Active Protocol: Document 08/02/24 14:27 DPL (Rec: 08/02/24 14:30 DPL [id number]) Discharge Planning Assessment Assigned [employer] Helper RIVAS Ochoa Advance Directives? No History Provided By Patient,Medical Record Expected Length of Stay 2 Has Patient been admitted in last 30 No days? Prior Living Arrangements House Household Members spouse Type of transporation used prior to Drives own vehicle admit Independent with ADL's Yes: modified independent Is patient alert and oriented? Yes Caregiver for Another No Comment No anticipated home d/c needs identified at this time. Barriers to Discharge No Discharge Plan Home Referrals Initiated None needed Whiteboard Updated in Patient Room with Yes name and ext. # of [employer] Operator Helper Review Status In Process Please Provide Date Initial DC 08/02/24 Assessment Was Performed
[2024-08-02 20:00] VITALS: BP 136/88; PULSE 74; RESP 19; TEMP 37.1; O2SAT 96
[2024-08-02] MEDS: MELATONIN 3 MG TABLET 9 MG PO (23:31)
[2024-08-03 04:00] VITALS: BP 130/74; PULSE 79; RESP 19; TEMP 36.6; O2SAT 95
[2024-08-03] MEDS: methylPREDNISolone 125 MG/2 ML VIAL 60 MG IV ×2 (05:27→13:37)
[2024-08-03] MEDS: ACETAMINOPHEN 325 MG TABLET 650 MG PO ×2 (05:28→11:18)
[2024-08-03 06:04] LABS: BUN Creatinine Ratio 24.4 (6-22); Blood Urea Nitrogen 22 mg/dL (9-20); Calcium 8.6 mg/dL (8.4-10.2); Carbon Dioxide 21 mmol/L (22-32); Chloride 105 mmol/L (98-107); Estimated Glomerular Filt Rate > 60 mL/min (>60); Glucose 155 mg/dL (70-99); HEMOLYSIS < 15 (0-50); Potassium 4.1 mmol/L (3.4-5.1); Sodium 133 mmol/L (137-145)
--- NOTE | 2024-08-03 07:24 | PM.DS.1 ---
History of Present Illness History of Present Illness Date Patient Seen: 08/03/24 Chief complaint: sent by PCP, r/o TIA's Narrative: Chief complaint: Right-sided hip pain and right leg weakness History of present illness: 68-year-old male 2 weeks ago was weeding in his guarding bending over could not stand up due to weakness in his right leg grab the post individually pull himself up was able to walk it but continued to have pain in his right hip when disease PCP ordered a plain x-ray film which demonstrated arthritic changes but nothing further Patient was walking in a crosswalk day ago and fell and could not stand up because of weakness in his right leg again. Patient has been sleeping in a chair due to right hip pain for the past 2 weeks. Emergency department patient was also found to be dehydrated and hypokalemic patient was admitted patient had been taking hydrochlorothiazide amlodipine and losartan Hospital course: Patient is feeling not as weak today his hydrochlorothiazide has been held his potassium has improved to 3.3. He still has significant pain with sitting on his right hip. Demonstrated a positive leg raise today and increased pain in his hip with lumbar extension MRI was ordered and patient is started on IV Solu-Medrol 08/03: No further vein in the right hip or leg weakness and is ambulating normally MRIs shows annular tear and disc extrusion superiorly L4-L5 along with other findings T12-L1: Normal appearance. L1-L2: No significant abnormality is seen. L2-L3: Mild loss of disc height is seen. Loss of disc signal is seen. Moderate generalized disc bulge is seen. There is a superimposed central disc protrusion. Mild to moderate facet hypertrophy is seen. There is at least moderate bilateral neural foraminal narrowing seen. There is a degree of compression seen upon the exiting nerve roots. Moderate central canal narrowing is seen. L3-L4: The disc height is well-preserved. Loss of disc signal is seen at this level. Moderate generalized disc bulge is seen. There is a superimposed central disc protrusion. At least moderate facet hypertrophy is seen. There is moderate right-sided and at least moderate left-sided neural foraminal narrowing. There is a degree of compression seen upon the exiting left L3 nerve root. Moderate to severe central canal narrowing is seen, as on series 7, image 11. L4-L5: The disc height is well-preserved. Loss of disc signal is seen at this level. Moderate generalized disc bulge is seen. There is a central/right disc extrusion, with superior migration of the disc material. There is an associated focal annular fissure seen posteriorly. Moderate facet joint hypertrophy is seen. At least moderate left-sided and moderate to severe right-sided neural foraminal narrowing. There is a degree of compression seen upon the exiting nerve roots. Moderate to severe central canal narrowing is seen at this level, as on series 7, image 14. L5-S1: Mild loss of disc height is seen. Loss of disc signal is seen. Moderate disc bulge is seen, which is eccentric to the left. There is moderate right-sided and at least moderate left-sided neural foraminal narrowing. Mild central canal narrowing is seen. IMPRESSION: At the L4-L5 level, there is a central/right disc extrusion seen. Multiple levels of significant degenerative change can be seen elsewhere. Review of systems: No lightheaded or dizziness no fever or chills No palpitations or shortness a breath No cough No nausea vomiting diarrhea No urinary symptoms Physical exam: Elderly male moderately obese alert cogent no acute distress HEENT unremarkable No labored respirations Patient has an antalgic gait Positive leg raise with a reproduction of the pain at the hip Reproduction of pain and worsening of pain with extension of the lumbar spine Assessment and plan: Annular disc tear and superior disc extrusion L4-L5 with right-sided radiculopathy symptomatically improved with Solu-Medrol Discharge home on steroid taper and follow up with PCP and referral to spine surgery Dehydration and hypokalemia likely iatrogenic with hydrochlorothiazide we will discontinue this follow-up with PCP Patient at low risk for DVT no prophylaxis indicated Full code blue Discharge Providers Provider Date of admission: 08/01/24 20:00 Discharge Date: 08/03/24 Primary care physician: Joe Palomo MD Discharge provider: Howard Mayes MD Exam Vital Signs (past 8 hours): - 08/03/24 04:00 Temperature 97.8 F Pulse Rate 79 Respiratory Rate 19 Blood Pressure 130/74 Pulse Oximetry 95 Oxygen Flow Rate 0 Oxygen Delivery Method Room Air Oxygen Flow Rate 0 Objective Labs 08/02/24 11:03 08/03/24 05:13 Labs: Laboratory Results - last 24 hr 08/02/24 08/03/24 11:03 05:13 WBC 7.7 RBC 4.61 Hgb 14.3 Hct 40.0 L MCV 86.6 MCH 31.0 MCHC 35.8 RDW 14.4 Plt Count 209 Neut % (Auto) 56.6 Lymph % (Auto) 30.2 [place] % (Auto) 8.7 Eos % (Auto) 3.4 Baso % (Auto) 1.1 Neut # (Auto) 4400 Lymph # (Auto) 2300 [place] # (Auto) 700 Eos # (Auto) 300 Baso # (Auto) 100 Sodium 134 L 133 L Potassium 3.3 L 4.1 Chloride 102 105 Carbon Dioxide 23 21 L BUN 23 H 22 H Creatinine 1.01 0.90 Estimated GFR > 60 > 60 BUN/Creatinine Ratio 22.8 H 24.4 H Glucose 183 H 155 H Calcium 8.3 L 8.6 PFSH Social History household members: spouse Smoking Status: Never smoker alcohol intake: current Discharge Plan Discharge Plan Patient Disposition: Home Discharge orders & Medications Prescriptions: Continued amlodipine 10 mg tablet 10 mg PO DAILY losartan 100 mg tablet 10 mg PO DAILY oxycodone-acetaminophen 5-325 mg tablet 1 tab PO Q6H PRN (Reason: Pain (Scale Score 4-6)) Qty: 12 0RF Discontinued hydrochlorothiazide 25 mg tablet 25 mg PO DAILY Follow up/Referrals: Joe Palomo MD [Primary Care Provider] - Visit Report/Discharge Packet Stand Alone Forms: Patient Portal/API, Stroke Signs & Symptoms Discharge Data Primary Care Provider: Joe Palomo Attending Provider: Rock Prather Admit Date/Time: 08/01/24 20:00
[2024-08-03 08:00] VITALS: BP 137/84; PULSE 68; RESP 20; TEMP 36.4; O2SAT 97
[2024-08-03] MEDS: AMLODIPINE 5 MG TABLET 10 MG PO (10:03)
[2024-08-03 10:04] VITALS: BP 137/84; PULSE 67
[2024-08-03] MEDS: LOSARTAN 50 MG TABLET 10 MG PO (10:04)
[2024-08-03] MEDS: LIDOCAINE 5% PATCH 1 EACH TOP (10:06)
--- NOTE | 2024-08-03 11:42 | CM.DPNOTE ---
DCP Continued: Reviewed EMR and team rounds for pt?s medical status. Per Hospitalist, pt being reviewed for sciatica vs. mass which could be attributing to experienced paralysis. Pt has an MRI scheduled on this date and will determine plan of care. Per hospitalist, pt could discharge home today if MRI normal. Plan: Anticipating discharge home with family pending MRI results. CM Team will continue to follow for coordination of discharge plans. MARGARITA Lisa
--- NOTE | 2024-09-03 11:07 | PC.NURSE ---
late entry per RN 08/01 dose of Magnesium that started at 1912 was discontinued at 2129.
== END 2024-08-03 15:57 | disposition home or self-care (01) ==
LOC: ED 19:58 → AC 20:01
PROVIDERS: Emergency Medicine; Admitting Provider Internal Medicine; Emergency Provider Student in an Organized Health Care Education/Training Program; PCP Student in an Organized Health Care Education/Training Program; Referring Provider Student in an Organized Health Care Education/Training Program; Visit Provider Internal Medicine
DX: E87.6 Hypokalemia (principal); E86.0 Dehydration; M51.16 Intervertebral disc disorders with radiculopathy, lumbar region; R53.1 Weakness; I10 Essential (primary) hypertension; Z91.81 History of falling; R29.700 NIHSS score 0
CPT/HCPCS: 36415; 70450; 72148; 73502; 73562; 80048; 80053; 83735; 85025; 93005; 93010; 96361; 96365; 96366; 96368; 96375; 96376; 99284; 99291; G0378; J2919; J3475

== ENCOUNTER → 2024-08-20 10:48 | Outpatient (CLI) | payer MEDICARE, SELFPAY ==
[2024-08-01 20:58] VITALS: BMI 33.2
[2024-08-20 11:53] LABS: Alanine Aminotransferase 52 IU/L (<50); Albumin Globulin Ratio 1.7 (1.0-2.8); Alkaline Phosphatase 66 U/L (38-126); Aspartate Aminotransferase 24 IU/L (17-59); Bilirubin Total 1.4 mg/dL (0.2-1.3); Blood Urea Nitrogen 18 mg/dL (9-20); Carbon Dioxide 22 mmol/L (22-32); Chloride 105 mmol/L (98-107); Estimated Glomerular Filt Rate > 60 mL/min (>60); Globulin 2.3 g/dL (1.7-4.1); Glucose 164 mg/dL (70-99); HEMOLYSIS < 15 (0-50); Potassium 4.4 mmol/L (3.4-5.1); Sodium 136 mmol/L (137-145); Total Protein 6.3 g/dL (6.3-8.2)
[2024-08-20 12:41] LABS: Vitamin B12 440 pg/mL (239-931)
== END ==
LOC: LAB 10:49
PROVIDERS: PCP Student in an Organized Health Care Education/Training Program; Referring Provider Student in an Organized Health Care Education/Training Program; Visit Provider Student in an Organized Health Care Education/Training Program
DX: I10 Essential (primary) hypertension (principal); E87.6 Hypokalemia; E11.40 Type 2 diabetes mellitus with diabetic neuropathy, unspecified; Z68.34 Body mass index [BMI] 34.0-34.9, adult
CPT/HCPCS: 36415; 80053; 82607

== ENCOUNTER → 2024-09-24 13:40 | Outpatient (CLI) | payer MEDICARE, SELFPAY ==
[2024-08-01 20:58] VITALS: BMI 33.2
[2024-09-24 16:07] LABS: UR Morphine/Opiate cutoff 300 Negative (Negative); Ur Specific Gravity Normal (Normal); Urine MDMA Negative (Negative); Urine Methamphetamines Negative (Negative); Urine Tetrahydrocannabinol Negative (Negative); Urine Tricyclic Antidepressant Negative (Negative)
== END ==
PROVIDERS: PCP Student in an Organized Health Care Education/Training Program; Referring Provider Student in an Organized Health Care Education/Training Program; Visit Provider Student in an Organized Health Care Education/Training Program
DX: F11.20 Opioid dependence, uncomplicated (principal); M51.26 Other intervertebral disc displacement, lumbar region; M54.31 Sciatica, right side
CPT/HCPCS: 80305

== ENCOUNTER → 2025-01-10 13:19 | Outpatient (CLI) | payer MEDICARE, SELFPAY ==
[2024-08-01 20:58] VITALS: BMI 33.2
[2025-01-10 14:23] LABS: Hemoglobin A1C% w Est Avg Glu 5.1 % (4.0-6.0)
[2025-01-10 14:32] LABS: Blood Urea Nitrogen 24 mg/dL (9-20); Calcium 9.4 mg/dL (8.4-10.2); Carbon Dioxide 22 mmol/L (22-32); Chloride 105 mmol/L (98-107); Estimated Glomerular Filt Rate > 60 mL/min (>60); Glucose 86 mg/dL (70-99); HEMOLYSIS < 15 (0-50); Potassium 4.4 mmol/L (3.4-5.1); Sodium 137 mmol/L (137-145)
== END ==
PROVIDERS: PCP Student in an Organized Health Care Education/Training Program; Referring Provider Student in an Organized Health Care Education/Training Program; Visit Provider Student in an Organized Health Care Education/Training Program
DX: E11.40 Type 2 diabetes mellitus with diabetic neuropathy, unspecified (principal); E66.01 Morbid (severe) obesity due to excess calories; E87.6 Hypokalemia; F11.20 Opioid dependence, uncomplicated; G47.01 Insomnia due to medical condition; I10 Essential (primary) hypertension; L02.02 Furuncle of face; M51.26 Other intervertebral disc displacement, lumbar region; R01.1 Cardiac murmur, unspecified; Z68.34 Body mass index [BMI] 34.0-34.9, adult
CPT/HCPCS: 36415; 80048; 83036